=== PATIENT | female | born 1955 | race American Indian/Alaskan Native ===

== ENCOUNTER 2018-06-06 03:34 | Emergency (ER) | payer MEDICARE ==
[2018-06-06 04:42] LABS: Basophils # (Auto) 0.1 K/mm3 (0.0-0.1); Basophils % (Auto) 0.7 % (0.0-1.8); Eosinophils % (Auto) 0.3 % (0.0-4.3); Hematocrit 35.9 % (30.3-42.9); Hemoglobin 11.3 gm/dl (10.1-14.3); Lymphocytes # (Auto) 1.7 K/mm3 (1.2-5.4); Lymphocytes % (Auto) 12.5 % (13.4-35.0); Mean Corpuscular HGB Conc 31 % (30-34); Mean Corpuscular Volume 85 fl (79-97); Monocytes # (Auto) 0.9 K/mm3 (0.0-0.8); Monocytes % (Auto) 6.8 % (0.0-7.3); Platelet Count 304 K/mm3 (140-440); Red Blood Count 4.23 M/mm3 (3.65-5.03); Red Cell Distribution Width 14.8 % (13.2-15.2)
[2018-06-06 05:05] LABS: Calcium 10.1 mg/dL (8.4-10.2)
[2018-06-06 07:10] LABS: Bilirubin,Urine NEG (Negative); Blood,Urine NEG (Negative); Color,Urine Yellow (Yellow); Mucus,Urine 2+ /HPF
--- NOTE | 2018-06-06 07:19 | Emergency Department Report ---
ED Psych HPI - General Chief Complaint: Psych Stated Complaint: MENTAL HEALTH EVAL CONFUSED Time Seen by Provider: 06/06/18 06:24 Source: patient Mode of arrival: Ambulatory Limitations: Other - History of Present Illness Initial Comments: 62-year-old male with unknown past medical history presents to the hospital with no specific complaints. Patient states she was walking to [place] to [employer] before they closed at 4 to get some money as per triage. Patient was alert and oriented to person and time but not to place as per triage. She gets a gitated when I asked any question and will not answer orientation questions. She denies any pain. She states she is homeless. She is not able to tell me her past medical history and states she does not take any medication nor does she plan to. Patient did not endorse suicidal or homicidal ideation. - Related Data Allergies Allergy/AdvReac Type Severity Reaction Status Date / Time Penicillins Allergy Unknown Verified 06/06/18 04:19 ED Review of Systems ROS: Stated complaint: MENTAL HEALTH EVAL CONFUSED Other details as noted in HPI Comment: All other systems reviewed and negative ED Past Medical Hx - Past Medical History Additional medical history: unknown - Surgical History Additional Surgical History: unknown - Social History Smoking Status: Never Smoker Substance Use Type: None ED Physical Exam - General Limitations: No Limitations - Other Other exam information: General: No limitations, patient is alert in no acute distress Head exam: Atraumatic, normocephalic Eyes exam: Normal appearance, pupils equal reactive to light, extraocular movements intact ENT: Moist mucous membrane Neck exam: Normal inspection, full range of motion, no meningismus nontender Respiratory exam: Clear to auscultation bilateral, no wheezes, rales, crackles Cardiovascular: Normal rate and rhythm, systolic murmur Abdomen: Soft, nondistended, and nontender, with normal bowel sounds, no rebound, or guarding Extremity: Full range of motion normal inspection no deformity Back: Normal Inspection, full range of motion, no tenderness Neurologic: Alert, oriented x2, cranial nerves intact, no motor or sensory deficit Psychiatric: normal affect, normal mood Skin: Warm, dry, intact ED Course Vital Signs 06/06/18 06/06/18 06/06/18 04:15 06:35 08:19 Temperature 98.5 F 98.5 F Pulse Rate 121 H 88 Respiratory 20 18 20 Rate Blood Pressure 107/71 Blood Pressure 128/79 [Right] O2 Sat by Pulse 98 98 98 Oximetry 06/06/18 08:27 Temperature Pulse Rate Respiratory 20 Rate Blood Pressure Blood Pressure [Right] O2 Sat by Pulse 98 Oximetry - Reevaluation(s) Reevaluation #1: 06/06/18 08:30 Patient became agitated and also refused to speak to mental health utility pipe layer. She received IM [facility]. 1013 was signed Reevaluation #2: 06/06/18 11:28 Repeat vital signs at the [facility] shows that her tachycardia has resolved ED Medical Decision Making - Lab Data Result diagrams: 06/06/18 04:30 06/06/18 04:30 Lab Results 06/06/18 06/06/18 06/06/18 Range/Units 04:30 04:30 04:30 WBC (4.5-11.0) K/mm3 RBC (3.65-5.03) M/mm3 Hgb (10.1-14.3) gm/dl Hct (30.3-42.9) % MCV (79-97) fl MCH (28-32) pg MCHC (30-34) % RDW (13.2-15.2) % Plt Count (140-440) K/mm3 Lymph % (Auto) (13.4-35.0) % [place] % (Auto) (0.0-7.3) % Eos % (Auto) (0.0-4.3) % Baso % (Auto) (0.0-1.8) % Lymph # (1.2-5.4) K/mm3 [place] # (0.0-0.8) K/mm3 Eos # (0.0-0.4) K/mm3 Baso # (0.0-0.1) K/mm3 Seg Neutrophils % (40.0-70.0) % Seg Neutrophils # (1.8-7.7) K/mm3 Sodium 137 (137-145) mmol/L Potassium 4.3 (3.6-5.0) mmol/L Chloride 101.6 (98-107) mmol/L Carbon Dioxide 23 (22-30) mmol/L Anion Gap 17 mmol/L BUN 14 (7-17) mg/dL Creatinine 1.4 H (0.7-1.2) mg/dL Estimated GFR 38 ml/min BUN/Creatinine Ratio 10 % Glucose 148 H (65-100) mg/dL Calcium 10.1 (8.4-10.2) mg/dL Urine Color (Yellow) Urine Turbidity (Clear) Urine pH (5.0-7.0) Ur Specific [place] (1.003-1.030) Urine Protein (Negative) mg/dL Urine Glucose (UA) (Negative) mg/dL Urine Ketones (Negative) mg/dL Urine Blood (Negative) Urine Nitrite (Negative) Urine Bilirubin (Negative) Urine Urobilinogen (<2.0) mg/dL Ur Leukocyte Esterase (Negative) Urine WBC (Auto) (0.0-6.0) /HPF Urine RBC (Auto) (0.0-6.0) /HPF U Epithel Cells (Auto) (0-13.0) /HPF Urine Mucus /HPF Salicylates < 0.3 L (2.8-20.0) mg/dL Urine Opiates Screen Urine Methadone Screen Acetaminophen < 5.0 L (10.0-30.0) ug/mL Ur Barbiturates Screen Ur Phencyclidine Scrn Ur Amphetamines Screen U Benzodiazepines Scrn Urine Cocaine Screen U Marijuana (THC) Screen Drugs of Abuse Note Plasma/Serum Alcohol (0-0.07) % 06/06/18 06/06/18 06/06/18 Range/Units 04:30 04:30 06:23 WBC 13.6 H (4.5-11.0) K/mm3 RBC 4.23 (3.65-5.03) M/mm3 Hgb 11.3 (10.1-14.3) gm/dl Hct 35.9 (30.3-42.9) % MCV 85 (79-97) fl MCH 27 L (28-32) pg MCHC 31 (30-34) % RDW 14.8 (13.2-15.2) % Plt Count 304 (140-440) K/mm3 Lymph % (Auto) 12.5 L (13.4-35.0) % [place] % (Auto) 6.8 (0.0-7.3) % Eos % (Auto) 0.3 (0.0-4.3) % Baso % (Auto) 0.7 (0.0-1.8) % Lymph # 1.7 (1.2-5.4) K/mm3 [place] # 0.9 H (0.0-0.8) K/mm3 Eos # 0.0 (0.0-0.4) K/mm3 Baso # 0.1 (0.0-0.1) K/mm3 Seg Neutrophils % 79.7 H (40.0-70.0) % Seg Neutrophils # 10.9 H (1.8-7.7) K/mm3 Sodium (137-145) mmol/L Potassium (3.6-5.0) mmol/L Chloride (98-107) mmol/L Carbon Dioxide (22-30) mmol/L Anion Gap mmol/L BUN (7-17) mg/dL Creatinine (0.7-1.2) mg/dL Estimated GFR ml/min BUN/Creatinine Ratio % Glucose (65-100) mg/dL Calcium (8.4-10.2) mg/dL Urine Color Yellow (Yellow) Urine Turbidity Slightly-cloudy (Clear) Urine pH 5.0 (5.0-7.0) Ur Specific [place] 1.025 (1.003-1.030) Urine Protein 30 mg/dl (Negative) mg/dL Urine Glucose (UA) Neg (Negative) mg/dL Urine Ketones Neg (Negative) mg/dL Urine Blood Neg (Negative) Urine Nitrite Neg (Negative) Urine Bilirubin Neg (Negative) Urine Urobilinogen 2.0 (<2.0) mg/dL Ur Leukocyte Esterase Neg (Negative) Urine WBC (Auto) 3.0 (0.0-6.0) /HPF Urine RBC (Auto) 3.0 (0.0-6.0) /HPF U Epithel Cells (Auto) 14.0 H (0-13.0) /HPF Urine Mucus 2+ /HPF Salicylates (2.8-20.0) mg/dL Urine Opiates Screen Urine Methadone Screen Acetaminophen (10.0-30.0) ug/mL Ur Barbiturates Screen Ur Phencyclidine Scrn Ur Amphetamines Screen U Benzodiazepines Scrn Urine Cocaine Screen U Marijuana (THC) Screen Drugs of Abuse Note Plasma/Serum Alcohol < 0.01 (0-0.07) % 06/06/18 Range/Units 06:23 WBC (4.5-11.0) K/mm3 RBC (3.65-5.03) M/mm3 Hgb (10.1-14.3) gm/dl Hct (30.3-42.9) % MCV (79-97) fl MCH (28-32) pg MCHC (30-34) % RDW (13.2-15.2) % Plt Count (140-440) K/mm3 Lymph % (Auto) (13.4-35.0) % [place] % (Auto) (0.0-7.3) % Eos % (Auto) (0.0-4.3) % Baso % (Auto) (0.0-1.8) % Lymph # (1.2-5.4) K/mm3 [place] # (0.0-0.8) K/mm3 Eos # (0.0-0.4) K/mm3 Baso # (0.0-0.1) K/mm3 Seg Neutrophils % (40.0-70.0) % Seg Neutrophils # (1.8-7.7) K/mm3 Sodium (137-145) mmol/L Potassium (3.6-5.0) mmol/L Chloride (98-107) mmol/L Carbon Dioxide (22-30) mmol/L Anion Gap mmol/L BUN (7-17) mg/dL Creatinine (0.7-1.2) mg/dL Estimated GFR ml/min BUN/Creatinine Ratio % Glucose (65-100) mg/dL Calcium (8.4-10.2) mg/dL Urine Color (Yellow) Urine Turbidity (Clear) Urine pH (5.0-7.0) Ur Specific [place] (1.003-1.030) Urine Protein (Negative) mg/dL Urine Glucose (UA) (Negative) mg/dL Urine Ketones (Negative) mg/dL Urine Blood (Negative) Urine Nitrite (Negative) Urine Bilirubin (Negative) Urine Urobilinogen (<2.0) mg/dL Ur Leukocyte Esterase (Negative) Urine WBC (Auto) (0.0-6.0) /HPF Urine RBC (Auto) (0.0-6.0) /HPF U Epithel Cells (Auto) (0-13.0) /HPF Urine Mucus /HPF Salicylates (2.8-20.0) mg/dL Urine Opiates Screen Presumptive negative Urine Methadone Screen Presumptive negative Acetaminophen (10.0-30.0) ug/mL Ur Barbiturates Screen Presumptive negative Ur Phencyclidine Scrn Presumptive negative Ur Amphetamines Screen Presumptive negative U Benzodiazepines Scrn Presumptive negative Urine Cocaine Screen Presumptive negative U Marijuana (THC) Screen Presumptive negative Drugs of Abuse Note Disclamer Plasma/Serum Alcohol (0-0.07) % - Radiology Data Radiology results: report reviewed FINAL REPORT EXAM: CT HEAD/BRAIN WO CON HISTORY: psychosis, med hx unknown TECHNIQUE: CT examination of the head without IV contrast PRIORS: None. FINDINGS: Slight mucosal thickening left maxillary sinus. Slight atherosclerotic calcified plaque in the vertebral arteries and carotid siphons. Slight senescent calcification in both basal ganglia. No acute air-fluid level visualized in the included air-filled sinuses. Bone windows demonstrate no acute fracture. There is ventricular and sulcal prominence compatible with global cerebrocortical atrophy. The brain contains no mass, mass effect, hemorrhage, or acute infarct. There is no extra-axial intracranial bleed, brain bleed, or midline shift. IMPRESSION: No acute CVA, intracranial bleed, or brain mass - Medical Decision Making Patient intermittently compliant with history and exam. Suspect underlying psychiatric disorder. Ct, Labs and urine unremarkable. 1013 and psych consult pending awaiting acceptance - Differential Diagnosis dementia, schizophrenia, psychosis, homelessness, encephalopathy Critical Care Time: No Critical care attestation.: If time is entered above; I have spent that time in minutes in the direct care of this critically ill patient, excluding procedure time. ED Disposition Clinical Impression: Psychosis, Homeless, Medical clearance for psychiatric admission Disposition: [id number]/TX-65 PSY HOSP/PSY UNIT Is pt being admited?: No Condition: Stable Time of Disposition: 14:12 (awaiting acceptance)
[2018-06-06 07:21] LABS: Amphetamine Screen,Urine PRESUMPTIVE NEGATIVE; Benzodiazepines Screen,Urine PRESUMPTIVE NEGATIVE; Cannabinoid Screen,Urine PRESUMPTIVE NEGATIVE; Cocaine Screen,Urine PRESUMPTIVE NEGATIVE; Methadone Screen,Urine PRESUMPTIVE NEGATIVE; Opiate Screen,Urine PRESUMPTIVE NEGATIVE
[2018-06-06] MEDS ORDERED: GEODON IM ONE (08:37)
[2018-06-06] MEDS ORDERED: WATER FOR INJ (PF) ONE (08:45)
--- NOTE | 2018-06-06 12:19 | Cat Scan Report ---
FINAL REPORT EXAM: CT HEAD/BRAIN WO CON HISTORY: psychosis, med hx unknown TECHNIQUE: CT examination of the head without IV contrast PRIORS: None. FINDINGS: Slight mucosal thickening left maxillary sinus. Slight atherosclerotic calcified plaque in the verteb ral arteries and carotid siphons. Slight senescent calcification in both basal ganglia. No acute air-fluid level visualized in the included air-filled sinuses. Bone windows demonstrate no acute fracture. There is ventricular and sulcal prominence compatible with global cerebrocortical atrophy. The brain contains no mass, mass effect, hemorrhage, or acute infarct. There is no extra-axial intracranial bleed, brain bleed, or midline shift. IMPRESSION: No acute CVA, intracranial bleed, or brain mass
[2018-06-07] MEDS ORDERED: ATIVAN IM ONE (05:02)
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
[2018-06-07] MEDS ORDERED: COGENTIN PO SCH (22:00)
[2018-06-07] MEDS: RisperDAL PO SCH (22:28)
--- NOTE | 2018-06-08 12:54 | Progress Note ---
Subjective - Reason for Consult Consult date: 06/08/18 Reason for consult: Follow-up - Chief Complaint Chief complaint: "I don't know why I'm here" 62-year-old female who presents to the emergency room with psychosis. Per record patient states she was walking to [place] to [employer] before they closed at 4 to get some money as per triage. Today the patient is calm and cooperative, but disorganized during the assessment. She rambles about irrelevant information throughout the interview. She had to be redirected several times to keep her on topic. She denies SI/HI's and VH's. She would not conform or deny AH's. Per the MAR, the patient refused her Risperdal last night. Mental Status Exam - Vital signs Last Vital Signs Temp 98.1 F 06/08/18 03:00 Pulse 91 H 06/08/18 03:00 Resp 18 06/08/18 03:00 BP 115/70 06/08/18 03:00 Pulse Ox 96 06/08/18 03:00 - Exam Narrative exam: MSE: Appearance: calm, cooperative Behavior: regular eye contact Speech: hyper verbal Mood: "okay" Affect: constricted Thought Process: disorganized Thought Content: denies SI/HI's and AVH's, possible paranoia Motor Activity: sitting up in bed Cognition: A/O x3 Insight: poor Judgment: poor Assessment and Plan Impression: Unspecified Psychosis. Today the patient is calm and cooperative during the assessment. The patent is possibly experiencing some paranoia. DDx: Schizophrenia, R/O Bipolar DO with psychosis Recommendation/Plan: Continue 1013 and Risperdal 1 mg PO HS for psychosis and Cogentin 0.5 mg PO HS for EPS prevention. Attempted to discuss possible metabolic side effects of Risperdal with the patient. Dispo: The patient was referred to inpatient psy services. Staffed with Dr Alireza Simpson.
[2018-06-08 18:14] LABS: Basophils # (Auto) 0.1 K/mm3 (0.0-0.1); Basophils % (Auto) 0.5 % (0.0-1.8); Eosinophils # (Auto) 0.1 K/mm3 (0.0-0.4); Eosinophils % (Auto) 0.5 % (0.0-4.3); Hematocrit 35.7 % (30.3-42.9); Hemoglobin 11.3 gm/dl (10.1-14.3); Lymphocytes # (Auto) 2.8 K/mm3 (1.2-5.4); Lymphocytes % (Auto) 23.7 % (13.4-35.0); Mean Corpuscular HGB Conc 32 % (30-34); Mean Corpuscular Volume 83 fl (79-97); Monocytes # (Auto) 0.8 K/mm3 (0.0-0.8); Monocytes % (Auto) 6.6 % (0.0-7.3); Platelet Count 277 K/mm3 (140-440); Red Cell Distribution Width 14.6 % (13.2-15.2)
[2018-06-08] MEDS: RisperDAL PO SCH (21:39)
[2018-06-08] MEDS ORDERED: COGENTIN PO SCH (22:00)
[2018-06-09] MEDS ORDERED: ATIVAN IV ONE (02:31)
[2018-06-09] MEDS ORDERED: GEODON IM ONE ×2 (02:31→14:09)
[2018-06-09] MEDS ORDERED: ATIVAN IM SCH (02:45)
[2018-06-09] MEDS ORDERED: ATIVAN IM ONE (04:00)
--- NOTE | 2018-06-09 09:48 | Progress Note ---
Subjective - Reason for Consult Consult date: 06/09/18 Reason for consult: Psychiatry Follow-up - Chief Complaint Chief complaint: "I'm marred to [employer]" 62-year-old female who presents to the emergency room with psychosis. Per record patient states she was walking to [place] to [employer] before they closed at 4 to get some money as per triage. Today the patient is calm and cooperative during the assessment. 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 She rambles on about him for several minutes and had to be redirected. She denies SI/HI's and AVH's. She denies any side effects of her medications. Mental Status Exam - Vital signs Last Vital Signs Temp 98.4 F 06/09/18 01:22 Pulse 78 06/09/18 01:22 Resp 18 06/09/18 01:22 BP 125/67 06/09/18 01:22 Pulse Ox 98 06/09/18 01:22 - Exam Narrative exam: MSE: Appearance: calm, cooperative Behavior: regular eye contact Speech: regular rate and tone Mood: "okay" Affect: constricted Thought Process: loose associations Thought Content: denies SI/HI's and AVH's, delusional Motor Activity: sitting up in bed Cognition: A/O x3 Insight: poor Judgment: poor Assessment and Plan Impression: Unspecified Psychosis. Today the patient is calm and cooperative during the assessment. DDx: Schizophrenia, R/O Bipolar DO with psychosis Recommendation/Plan: Continue 1013 and Risperdal 1 mg PO HS for psychosis and Cogentin 0.5 mg PO HS for EPS prevention. Discussed possible metabolic side effects of Risperdal with the patient. Dispo: The patient was accepted at [facility] pending transport time. Will staff with Dr Alireza Simpson.
[2018-06-09] MEDS ORDERED: WATER FOR INJ (PF) ONE (14:14)
[2018-06-09 15:26] VITALS: BP 128/66
== END 2018-06-09 21:03 ==
LOC: ED 03:34 → EEVIPCON 03:34 → ED 06-09 21:03
DX: F29 Unspecified psychosis not due to a substance or known physiological condition (principal); Z59.0 Homelessness; Z88.0 Allergy status to penicillin
CPT/HCPCS: 36415; 70450; 80048; 80307; 81001; 85025; 96372; 99285; G0480; J2060; J3486; 80320